=== PATIENT | female | born 1980 | race Caucasian/White ===

== ENCOUNTER → 2017-01-31 | Outpatient (CLI) | payer BC ==
--- NOTE | 2017-01-31 09:55 | KCIC ---
EXAM: Maxillofacial bone CT without contrast. HISTORY: Maxillary sinusitis. TECHNIQUE: Computed tomographic images of the maxillofacial bones were obtained without contrast. *One or more of the following individualized dose reduction techniques were utilized for this examination: 1. Automated exposure control. 2. Adjustment of the mA and/or kV according to patient size. 3. Use of iterative reconstruction technique. COMPARISON: None. FINDINGS: There are mucous retention cysts within the left maxillary sinus. There is minimal maxillary and ethmoid sinus mucosal thickening. There is attenuation of the left ostiomeatal unit. There is mild leftward nasal septal deviation. The orbits and mastoid air cells are clear. The temporomandibular joints are intact. The visualized portions of the brain and calvarium are unremarkable. IMPRESSION: 1. Left maxillary sinus mucous retention cysts and minimal maxillary and ethmoid sinus mucosal thickening, resulting in slight attenuation of the left ostiomeatal unit. 2. Mild leftward nasal septal deviation. Electronically signed by: Savita Rosenberg MD (01/31/2017 9:50 AM) [email or web address]
== END | disposition home or self-care (01) ==
LOC: KCIC CT 08:42
PROVIDERS: ATTEND Otolaryngology
DX: J32.0 Chronic maxillary sinusitis (principal); J34.2 Deviated nasal septum; J34.1 Cyst and mucocele of nose and nasal sinus
CPT/HCPCS: 70486

== ENCOUNTER → 2017-03-09 | Outpatient (CLI) | payer BC ==
[2017-03-09] MEDS: GADOBUTROL 7.5 MMOL/7.5 ML VIAL IV (08:27)
== END | disposition home or self-care (01) ==
LOC: KCIC MRI 07:46
DX: R51 Headache (principal); J32.0 Chronic maxillary sinusitis
CPT/HCPCS: 70553; A9585

== ENCOUNTER → 2018-03-12 | Outpatient (CLI) | payer BC ==
[~2018-03-12] MED LIST: AMIT10TA PO; ESCITALOPRAM OXA5 MG PO; GADOBUTROL 7.5 MMOL/7.5 ML VIAL IV ONE; PANT40TA5 PO
--- NOTE | 2018-03-12 10:15 | KCIC ---
MRI Brain with and without contrast History: Follow-up abnormal MRI Technique: Multiplanar, multi sequential pre and postcontrast MR imaging was performed of the brain. Comparison: None Findings: Previously seen small focus of extra-axial enhancement of the left vertex about 0.3 to 0.4 cm is similar. There is no new abnormal intracranial enhancement, intra-axial mass effect, midline shift, or extra-axial fluid collection. There is no new significant signal abnormality of the brain parenchyma. There is no restricted diffusion suggestive of recent infarct. There is preservation of the major arterial flow voids at the skull base. There is negligible patchy ethmoid air cell mucosal thickening greater on the left, very mild deviation nasal septum to the left. There is residual very mild left maxillary sinus mucosal thickening although decreased. There is again increased CSF signal of the optic nerve sheaths bilaterally and somewhat small pituitary gland. Cerebellar tonsils are normal in location. Impression: 1. Intracranial findings are stable, tiny focus of extra-axial enhancement at the left vertex unchanged, more prominent focally prominent vein favored over very small extra-axial mass. There is again nonspecific increased CSF signal of the optic nerve sheaths and relatively small pituitary gland again which may be incidental unless there is clinical suspicion for intracranial hypertension. There is decreased paranasal sinus mucosal thickening. Electronically signed by: Ivan Carter MD (03/12/2018 10:11 AM) [id number]
== END | disposition home or self-care (01) ==
LOC: KCIC MRI 07:52
PROVIDERS: ATTEND Psychiatry & Neurology Neurology
DX: R93.0 Abnormal findings on diagnostic imaging of skull and head, not elsewhere classified (principal)
CPT/HCPCS: 70553; A9585